=== PATIENT | female | born 1975 | race Caucasian/White ===

== ENCOUNTER → 2018-08-11 | Outpatient (CLI) | payer OTHER | END | disposition home or self-care (01) | LOC: RAH 10:46 | PROVIDERS: ATTEND Neurological Surgery | DX: M54.12 Radiculopathy, cervical region (principal); M48.02 Spinal stenosis, cervical region | CPT/HCPCS: 72141 ==

== ENCOUNTER → 2019-03-02 | Outpatient (CLI) | payer OTHER | END | disposition home or self-care (01) | LOC: RAH 12:51 | PROVIDERS: ATTEND Orthopaedic Surgery | DX: M19.012 Primary osteoarthritis, left shoulder (principal); M75.42 Impingement syndrome of left shoulder | CPT/HCPCS: 73221 ==

== ENCOUNTER → 2019-03-30 | Outpatient (CLI) | payer OTHER ==
[2019-03-30 07:34] LABS: BASOPHILS % (AUTO) 1.3 % (0.0-5.0); EOSINOPHILS % (AUTO) 3.3 % (0.0-8.0); HEMATOCRIT 39.5 % (36-48); LYMPHOCYTES % (AUTO) 42.6 % (21.0-51.0); MEAN CORPUSCULAR HEMOGLOBIN 31.3 pg (27.0-33.0); MEAN CORPUSCULAR HGB CONC 33.8 g/dL (32.0-36.0); MEAN CORPUSCULAR VOLUME 92.4 fL (79-99); MONOCYTES % (AUTO) 6.7 % (3.0-13.0); NEUTROPHILS % (AUTO) 46.1 % (40.0-77.0); PLATELET COUNT (AUTO) 165 K/uL (130-400); RED BLOOD CELL COUNT(AUTO) 4.28 MIL/uL (4.00-5.50); RED CELL DISTRIBUTION WIDTH 13.8 % (11.0-15.5); WHITE BLOOD COUNT (AUTO) 3.8 K/uL (4.8-10.8)
[2019-03-30 07:57] LABS: HEMOGLOBIN A1C 5.3 % (4.0-6.0)
[2019-03-30 08:09] LABS: ALBUMIN 4.2 g/dL (3.5-5.0); BILIRUBIN,TOTAL 0.4 mg/dL (0.2-1.0); CREATININE 0.6 mg/dL (0.5-1.5); POTASSIUM 4.4 mmol/L (3.5-5.1); T4 (THYROXINE) 7.2 ug/dL (4.7-13.3); THYROID STIMULATING HORMONE 1.26 uIU/mL (0.36-3.74); TOTAL PROTEIN, SERUM 7.3 g/dL (6.0-8.3)
== END | disposition home or self-care (01) ==
LOC: LAB 07:11
PROVIDERS: ATTEND Internal Medicine Cardiovascular Disease
DX: R00.2 Palpitations (principal); R55 Syncope and collapse
CPT/HCPCS: 36415; 80053; 80061; 83036; 84436; 84439; 84443; 84481; 85025

== ENCOUNTER → 2019-04-20 | Outpatient (CLI) | payer OTHER | END | disposition home or self-care (01) | LOC: SHCH 12:43 | PROVIDERS: ATTEND Internal Medicine Cardiovascular Disease | DX: R55 Syncope and collapse (principal); R00.2 Palpitations | CPT/HCPCS: 93306 ==

== ENCOUNTER 2019-06-09 06:58 | Day surgery (SDC) | payer OTHER ==
[2019-06-08 15:07] VITALS: BP 120/74
[2019-06-08 15:15] LABS: BASOPHILS % (AUTO) 0.9 % (0.0-5.0); EOSINOPHILS % (AUTO) 3.3 % (0.0-8.0); HEMATOCRIT 39.9 % (36-48); LYMPHOCYTES % (AUTO) 44.4 % (21.0-51.0); MEAN CORPUSCULAR HEMOGLOBIN 31.7 pg (27.0-33.0); MEAN CORPUSCULAR HGB CONC 34.2 g/dL (32.0-36.0); MEAN CORPUSCULAR VOLUME 92.7 fL (79-99); NEUTROPHILS % (AUTO) 44.4 % (40.0-77.0); NUCLEATED RED BLOOD CELLS 0.1 % (0.0-0.19); PLATELET COUNT (AUTO) 167 K/uL (130-400); RED BLOOD CELL COUNT(AUTO) 4.31 MIL/uL (4.00-5.50); RED CELL DISTRIBUTION WIDTH 13.2 % (11.0-15.5); WHITE BLOOD COUNT (AUTO) 5.6 K/uL (4.8-10.8)
[2019-06-08 15:30] LABS: CREATININE 0.7 mg/dL (0.5-1.5); POTASSIUM 3.6 mmol/L (3.5-5.1)
[~2019-06-09] VITALS: Ht 168.9 cm; Wt 70.8 kg
[2019-06-09] VITALS (13 sets, daily range): BP systolic 101–126; BP diastolic 60–84
[~2019-06-09 06:58] MED LIST: MELO-106 PO; MULT1CAP36 PO; inhaler IH
[2019-06-09] MEDS ORDERED: MIDAZOLAM HCL 1 MG/ML 2ML VIAL ONE ×2 (07:46→08:35)
[2019-06-09] MEDS ORDERED: ONDANSETRON HCL 4 MG/2 ML VIAL ONE (07:47)
[2019-06-09] MEDS ORDERED: LACTATED RINGERS 1000ML 1,000 ML IV ONE (08:01)
[2019-06-09] MEDS: CEFAZOLIN SODIUM 1 GM VIAL IVP ONE ×2 (08:29→09:00)
[2019-06-09] MEDS ORDERED: EPINEPHRINE 1 MG/ML 30ML VIAL IJ ONE (08:30)
[2019-06-09] MEDS ORDERED: LIDOCAINE PF 2% 5ML ABBOJECT ONE (08:32)
[2019-06-09] MEDS ORDERED: ROPIVACAINE 0.5% 5MG/ML 30ML IJ ONE (08:32)
[2019-06-09] MEDS ORDERED: PROPOFOL 10 MG/ML 20ML VIAL IV ONE (08:33)
[2019-06-09] MEDS ORDERED: ROCURONIUM 10MG/1ML SYR 10 MG/ML ML ONE ×2 (08:33→09:24)
[2019-06-09] MEDS ORDERED: FENTANYL CITRATE PF 50 MCG/1 ML 2ML VIAL ONE ×2 (08:35→11:54)
[2019-06-09] MEDS ORDERED: GLYCOPYRROLATE 1 MG/5 ML SYRINGE ONE (11:53)
[2019-06-09] MEDS ORDERED: NEOSTIGMINE 5MG/5ML SYR IV ONE (11:53)
[2019-06-09] MEDS ORDERED: HYDR-4457 PO (12:13)
[2019-06-09] MEDS ORDERED: CEPH500B PO (12:13)
[2019-06-09] MEDS ORDERED: SCOPOLAMINE HYDROBROMIDE 1 EACH ADH..PATCH TD ONE (12:14)
[2019-06-09] MEDS ORDERED: MEPERIDINE-PF 25 MG/ML SYG ONE (12:20)
--- NOTE | 2019-06-09 13:30 | NUR ---
RECEIVE PT RECEIVED FROM POWDER BLENDER VIA STRETCHER AWAKE, ORIENTED, SLEEPY. PT STABLE. NO COMPLAINTS MADE. SLING TO LEFT ARM IN PLACE, LEFT ARM SUPPORTED WITH PILLOW. OPSITE/GAUZE DRESSINGS TO LEFT SHOULDER DRY AND INTACT, NO OOZING NOTED. MINIMAL MOVEMENT NOTED TO LEFT ARM, CAPILLARY REFILLS BRISK, PULSE STRONG. CALL GAVIRIA WITHIN REACH, WILL CALL FOR TO GO IN TO ROOM.
--- NOTE | 2019-06-09 14:18 | NUR ---
DISCHARGE PT DISCHARGED VIA WHEELCHAIR WITH . PT STABLE. NO COMPLAINTS MADE, NOT IN ANY APPARENT DISTRESS. DRESSINGS TO LEFT SHOULDER DRY AND INTACT, NO OOZING OR BLEEDING NOTED. SLING LEFT ARM IN PLACE. DISCHARGE INSTRUCTIONS GIVEN TO AND PT, VERBALIZED UNDERSTANDING. ALSO VERBALIZED UNDERSTANDING THAT PT MAY KEEP SCOPOLAMINE PATCH UP TO 3 DAYS, WASH HANDS AND DO NOT TOUCH EYES WHEN HANDLING PATCH.
== END 2019-06-09 14:18 | disposition home or self-care (01) ==
LOC: DAH 06:58
PROVIDERS: ATTEND Orthopaedic Surgery
DX: S43.432A Superior glenoid labrum lesion of left shoulder, initial encounter (principal); M25.812 Other specified joint disorders, left shoulder; M19.012 Primary osteoarthritis, left shoulder; M25.512 Pain in left shoulder; J45.909 Unspecified asthma, uncomplicated; G89.29 Other chronic pain; X58.XXXA Exposure to other specified factors, initial encounter; Y93.89 Activity, other specified; Y92.89 Other specified places as the place of occurrence of the external cause; Y99.8 Other external cause status; Z79.01 Long term (current) use of anticoagulants; Z79.899 Other long term (current) drug therapy; Z98.890 Other specified postprocedural states; Z83.3 Family history of diabetes mellitus; Z82.49 Family history of ischemic heart disease and other diseases of the circulatory system
CPT/HCPCS: 29807; 29824; 29826; 36415; 64415; 80048; 85025; A4565; A4600; A4649 ×5; A4930; A6204; C1713; G0168; J0171; J0690; J2001; J2175; J2250 ×2; J2405; J2704; J2710; J2795; J3010 ×2; J3490; J7030; J7120

== ENCOUNTER → 2019-06-19 | Outpatient (CLI) | payer OTHER ==
[~2019-06-19] MED LIST changes: +CEPH500B PO; +HYDR-4457 PO; +IOHEXOL-350 75 ML VIAL IV ONE
== END | disposition home or self-care (01) ==
LOC: RAH 14:10
PROVIDERS: ATTEND Family Medicine
DX: I26.99 Other pulmonary embolism without acute cor pulmonale (principal)
CPT/HCPCS: 71275; Q9967

== ENCOUNTER → 2019-07-13 | Outpatient (CLI) | payer OTHER ==
[~2019-07-13] MED LIST changes: -IOHEXOL-350 75 ML VIAL IV ONE
== END | disposition home or self-care (01) ==
LOC: RAH 09:54
PROVIDERS: ATTEND Family Medicine
DX: I82.621 Acute embolism and thrombosis of deep veins of right upper extremity (principal); M79.601 Pain in right arm
CPT/HCPCS: 93931; 93971

== ENCOUNTER 2019-11-02 17:39 | Observation (INO) | payer OTHER ==
[~2019-11-02] VITALS: Ht 170.2 cm; Wt 68.0 kg
[2019-11-02] MEDS ORDERED: ONDANSETRON HCL 4 MG/2 ML VIAL ONE (18:47)
[2019-11-02] MEDS ORDERED: SODIUM CHLORIDE 0.9% 1000ML 1,000 ML IV ONE ×3 (18:47→20:06)
[2019-11-02 19:21] LABS: CREATININE 0.6 mg/dL (0.5-1.5); POTASSIUM 3.7 mmol/L (3.5-5.1)
[2019-11-02 19:22] LABS: INR 1.02 (0.85-1.15); PARTIAL THROMBOPLASTIN TIME 25.6 SEC (26.3-35.5); PROTHROMBIN TIME 10.7 SEC (9.6-11.6)
[2019-11-02 19:24] LABS: BASOPHILS % (AUTO) 0.3 % (0.0-5.0); EOSINOPHILS % (AUTO) 0.2 % (0.0-8.0); HEMATOCRIT 45.4 % (36-48); LYMPHOCYTES % (AUTO) 6.7 % (21.0-51.0); MEAN CORPUSCULAR HEMOGLOBIN 30.2 pg (27.0-33.0); MEAN CORPUSCULAR HGB CONC 33.7 g/dL (32.0-36.0); MEAN CORPUSCULAR VOLUME 89.7 fL (79-99); MONOCYTES % (AUTO) 2.5 % (3.0-13.0); NEUTROPHILS % (AUTO) 90.1 % (40.0-77.0); PLATELET COUNT (AUTO) 162 K/uL (130-400); RED BLOOD CELL COUNT(AUTO) 5.06 MIL/uL (4.00-5.50); RED CELL DISTRIBUTION WIDTH 13.1 % (11.0-15.5); WHITE BLOOD COUNT (AUTO) 8.9 K/uL (4.8-10.8)
[2019-11-02 19:25] LABS: ALBUMIN 4.3 g/dL (3.5-5.0); BILIRUBIN,TOTAL 0.5 mg/dL (0.2-1.0); TOTAL PROTEIN, SERUM 7.4 g/dL (6.0-8.3)
[2019-11-02] MEDS ORDERED: SODIUM CHLORIDE 0.9% 500ML 500 ML IV ONE ×2 (20:03→20:06)
[2019-11-02] MEDS ORDERED: KETOROLAC TROMETHAMINE 30MG/ML ONE (20:20)
[2019-11-02 21:07] LABS: BAND NEUTROPHILS % (MANUAL) 13 % (0-2); LYMPHOCYTES % (MANUAL) 6 % (22-44); MAN.DIFF COMMENT-IMPRESSION MANUAL DIFFERENTIAL; MONOCYTES % (MANUAL) 5 % (2-9); SEGMENTED NEUTROPHILS % 76 % (40-70)
[2019-11-02 21:08] LABS: PLATELET MORPHOLOGY COMMENT ADEQUATE
[2019-11-02 22:16] LABS: APPEARANCE,URINE Clear (CLEAR); BILIRUBIN,URINE Negative (NEGATIVE); COLOR,URINE Yellow (YELLOW); GLUCOSE, URINE (UA) Negative (NEGATIVE); KETONES,URINE 40 mg/dL (NEGATIVE); LEUKOCYTE ESTERASE ,URINE Negative (NEGATIVE); NITRATE,URINE Negative (NEGATIVE); OCCULT BLOOD,URINE Trace (NEGATIVE); PH,URINE 5.5 (5.0-8.0); PROTEIN,URINE Negative (NEGATIVE)
[2019-11-02 22:18] LABS: HCG,QUAL RESULT NEGATIVE (NEGATIVE)
[2019-11-02 22:32] LABS: AMORPHOUS SEDIMENT,UR Few /LPF (None Seen); BACTERIA,URINE Rare /HPF (None Seen); MUCUS,URINE Few LPF (None Seen); SQUAMOUS EPITHELIAL CELL,UR Few /HPF (0-2); WBC,URINE None Seen /HPF (0-1)
[2019-11-03] MEDS ORDERED: MECLIZINE HCL 25 MG TABLET PO PRN (00:30)
[2019-11-03] MEDS ORDERED: LACTULOSE 20 GM/30 ML UDCUP PO PRN (00:30)
[2019-11-03] MEDS ORDERED: ONDANSETRON HCL 4 MG/2 ML VIAL IV PRN (00:30)
[2019-11-03] MEDS ORDERED: ACETAMINOPHEN 325 MG TAB PO PRN ×2 (00:30)
[2019-11-03] MEDS ORDERED: SODIUM CHLORIDE 0.9% 1000ML 1,000 ML IV SCH (00:30)
[2019-11-03] MEDS ORDERED: KETOROLAC TROMETHAMINE 15MG/ML IV PRN (01:00)
[2019-11-03] MEDS ORDERED: SODIUM CHLORIDE 0.9% 1000ML 1,000 ML IV ONE (01:43)
[2019-11-03] MEDS ORDERED: KETOROLAC TROMETHAMINE 15MG/ML ONE (01:43)
[2019-11-03 03:00] VITALS: BP 97/54
[2019-11-03 07:48] VITALS: BP 98/54
[2019-11-03] MEDS ORDERED: FAMOTIDINE 20MG TAB 20 MG TAB PO SCH (09:00)
[2019-11-03] MEDS ORDERED: METOPROLOL TARTRATE 25 MG TAB PO SCH (09:00)
[2019-11-03] MEDS ORDERED: ENOXAPARIN SODIUM 30 MG/0.3 ML SQ SCH (09:00)
[2019-11-03 11:32] VITALS: BP 110/68
--- NOTE | 2019-11-03 14:28 | NUR ---
INSTRUCTIONS DISCHARGE INSTRUCTIONS GIVEN TO PATIENT USING TEACH BACK. IV HAS BEEN REMOVED. NO BLEEDING NOTED, SITE COVERED WITH GAUZE AND SECURED WITH A BAND-AID. NO NEW PRESCRIPTIONS. F/U APPOINTMENT TO BE MADE BY PATIENT NEEDED. ALL PRINTED INFORMATION AND MD INSTRUCTIONS GIVEN TO PATIENT. NO QUESTIONS OR CONCERNS VOICED. PENDING RIDE HOME.
== END 2019-11-03 15:00 | disposition home or self-care (01) ==
LOC: EDH 17:39 → EDHIP 11-03 00:25 → 3CH 11-03 01:45
PROVIDERS: ADMIT Internal Medicine; ATTEND Internal Medicine
DX: E86.0 Dehydration (principal); R11.2 Nausea with vomiting, unspecified; R10.30 Lower abdominal pain, unspecified; R42 Dizziness and giddiness; I95.9 Hypotension, unspecified; R00.0 Tachycardia, unspecified; K52.9 Noninfective gastroenteritis and colitis, unspecified; I82.621 Acute embolism and thrombosis of deep veins of right upper extremity; Z86.718 Personal history of other venous thrombosis and embolism; Z87.891 Personal history of nicotine dependence; Z86.72 Personal history of thrombophlebitis; Z79.01 Long term (current) use of anticoagulants; Z79.899 Other long term (current) drug therapy
CPT/HCPCS: 36415; 71045; 80053; 81001; 81025; 84484; 85025; 85610; 85730; 87804 ×2; 93005; 96372; 99284; G0378 ×15; J1650; J1885 ×2; J2405; J7030 ×4; J7040 ×2

== ENCOUNTER → 2019-11-24 | Outpatient (CLI) | payer OTHER ==
[~2019-11-24] MED LIST changes: -CEPH500B PO; -HYDR-4457 PO; -MELO-106 PO; -inhaler IH
== END | disposition home or self-care (01) ==
LOC: RAH 12:54
PROVIDERS: ATTEND Family Medicine
DX: I82.611 Acute embolism and thrombosis of superficial veins of right upper extremity (principal)
CPT/HCPCS: 93971

== ENCOUNTER → 2019-12-22 | Outpatient (CLI) | payer OTHER ==
[2019-12-22 11:47] LABS: BASOPHILS % (AUTO) 0.8 % (0.0-5.0); HEMATOCRIT 40.8 % (36-48); LYMPHOCYTES % (AUTO) 42.9 % (21.0-51.0); MEAN CORPUSCULAR HEMOGLOBIN 30.4 pg (27.0-33.0); MEAN CORPUSCULAR HGB CONC 33.3 g/dL (32.0-36.0); MEAN CORPUSCULAR VOLUME 91.3 fL (79-99); MONOCYTES % (AUTO) 5.6 % (3.0-13.0); NEUTROPHILS % (AUTO) 49.5 % (40.0-77.0); PLATELET COUNT (AUTO) 164 K/uL (130-400); RED BLOOD CELL COUNT(AUTO) 4.47 MIL/uL (4.00-5.50); RED CELL DISTRIBUTION WIDTH 13.5 % (11.0-15.5); WHITE BLOOD COUNT (AUTO) 4.8 K/uL (4.8-10.8)
[2019-12-22 12:13] LABS: ALBUMIN 4.6 g/dL (3.5-5.0); BILIRUBIN,TOTAL 0.4 mg/dL (0.2-1.0); CREATININE 0.6 mg/dL (0.5-1.5); POTASSIUM 4.1 mmol/L (3.5-5.1); TOTAL PROTEIN, SERUM 7.7 g/dL (6.0-8.3)
== END | disposition home or self-care (01) ==
LOC: LAB 11:23
PROVIDERS: ATTEND Family Medicine
DX: T78.00XA Anaphylactic reaction due to unspecified food, initial encounter (principal); I82.622 Acute embolism and thrombosis of deep veins of left upper extremity; I49.8 Other specified cardiac arrhythmias
CPT/HCPCS: 36415; 80053; 82085; 82550; 83615; 85025

== ENCOUNTER → 2020-03-18 | Outpatient (CLI) | payer OTHER | END | disposition home or self-care (01) | LOC: RAH 10:54 | PROVIDERS: ATTEND Family Medicine | DX: M79.604 Pain in right leg (principal) | CPT/HCPCS: 93971 ==

== ENCOUNTER 2020-10-28 16:03 | Emergency (ER) | payer OTHER ==
[2020-10-28] MEDS ORDERED: DIPHENHYDRAMINE HCL 25 MG CAPSULE ONE (17:28)
== END 2020-10-28 18:08 | disposition home or self-care (01) ==
LOC: EDH 16:03
DX: L50.0 Allergic urticaria (principal); Z91.018 Allergy to other foods; Z98.51 Tubal ligation status; Z79.899 Other long term (current) drug therapy
CPT/HCPCS: 99282; Q0163

== ENCOUNTER → 2020-11-05 | Outpatient (CLI) | payer OTHER | END | disposition home or self-care (01) | LOC: RAH 09:48 | PROVIDERS: ATTEND Family Medicine | DX: I82.621 Acute embolism and thrombosis of deep veins of right upper extremity (principal) | CPT/HCPCS: 93971 ==

== ENCOUNTER → 2021-02-19 | Outpatient (CLI) | payer OTHER ==
[2021-02-19 06:42] LABS: BASOPHILS % (AUTO) 0.9 % (0.0-5.0); EOSINOPHILS % (AUTO) 2.6 % (0.0-8.0); HEMATOCRIT 41.2 % (36-48); LYMPHOCYTES % (AUTO) 48.9 % (21.0-51.0); MEAN CORPUSCULAR HEMOGLOBIN 29.7 pg (27.0-33.0); MEAN CORPUSCULAR HGB CONC 32.8 g/dL (32.0-36.0); MEAN CORPUSCULAR VOLUME 90.7 fL (79-99); MONOCYTES % (AUTO) 8.2 % (3.0-13.0); NEUTROPHILS % (AUTO) 39.2 % (40.0-77.0); PLATELET COUNT (AUTO) 208 K/uL (130-400); RED BLOOD CELL COUNT(AUTO) 4.54 MIL/uL (4.00-5.50); RED CELL DISTRIBUTION WIDTH 13.2 % (11.0-15.5); WHITE BLOOD COUNT (AUTO) 5.4 K/uL (4.8-10.8)
[2021-02-19 06:54] LABS: APPEARANCE,URINE CLEAR (CLEAR); BILIRUBIN,URINE NEGATIVE (NEGATIVE); COLOR,URINE YELLOW (YELLOW); GLUCOSE, URINE (UA) NEGATIVE (NEGATIVE); KETONES,URINE NEGATIVE (NEGATIVE); LEUKOCYTE ESTERASE ,URINE NEGATIVE (NEGATIVE); NITRATE,URINE NEGATIVE (NEGATIVE); OCCULT BLOOD,URINE NEGATIVE (NEGATIVE); PROTEIN,URINE NEGATIVE (NEGATIVE); UROBILINOGEN,URINE 0.2 mg/dL (0.2-1.0)
[2021-02-19 07:28] LABS: ALBUMIN 4.1 g/dL (3.5-5.0); BILIRUBIN,TOTAL 0.3 mg/dL (0.2-1.0); CREATININE 0.7 mg/dL (0.5-1.5); MAGNESIUM 2.1 mg/dL (1.80-2.40); POTASSIUM 3.8 mmol/L (3.5-5.1); THYROID STIMULATING HORMONE 1.5 uIU/mL (0.36-3.74); TOTAL PROTEIN, SERUM 7.2 g/dL (6.0-8.3)
== END | disposition home or self-care (01) ==
LOC: LAB 06:11
PROVIDERS: ATTEND Family Medicine
DX: I49.8 Other specified cardiac arrhythmias (principal); I95.1 Orthostatic hypotension; G90.9 Disorder of the autonomic nervous system, unspecified; R42 Dizziness and giddiness; R53.82 Chronic fatigue, unspecified
CPT/HCPCS: 36415; 80053; 80061; 81003; 82306; 82607; 83036; 83735; 84443; 85025

== ENCOUNTER → 2021-03-21 | Outpatient (CLI) | payer OTHER ==
[2021-03-21 09:02] LABS: POTASSIUM 3.8 mmol/L (3.5-5.1)
== END | disposition home or self-care (01) ==
LOC: LAB 07:13
PROVIDERS: ATTEND Nurse Practitioner Family
DX: D51.8 Other vitamin B12 deficiency anemias (principal)
CPT/HCPCS: 36415; 82607; 84132

== ENCOUNTER → 2021-04-10 | Outpatient (CLI) | payer OTHER | END | disposition home or self-care (01) | LOC: RAH 07:08 | PROVIDERS: ATTEND Internal Medicine Gastroenterology | DX: R10.9 Unspecified abdominal pain (principal) | CPT/HCPCS: 76700 ==

== ENCOUNTER 2021-06-18 20:35 | Emergency (ER) | payer OTHER ==
[2021-06-18 20:42] VITALS: BP 150/90
[2021-06-18 20:52] LABS: BASOPHILS % (AUTO) 0.9 % (0.0-5.0); EOSINOPHILS % (AUTO) 2.6 % (0.0-8.0); HEMATOCRIT 39.6 % (36-48); LYMPHOCYTES % (AUTO) 52.4 % (21.0-51.0); MEAN CORPUSCULAR HEMOGLOBIN 30.7 pg (27.0-33.0); MEAN CORPUSCULAR HGB CONC 33.8 g/dL (32.0-36.0); MEAN CORPUSCULAR VOLUME 90.8 fL (79-99); MONOCYTES % (AUTO) 6.7 % (3.0-13.0); NEUTROPHILS % (AUTO) 37.2 % (40.0-77.0); NUCLEATED RED BLOOD CELLS 0.2 % (0.0-0.19); PLATELET COUNT (AUTO) 239 K/uL (130-400); RED BLOOD CELL COUNT(AUTO) 4.36 MIL/uL (4.00-5.50); RED CELL DISTRIBUTION WIDTH 13.4 % (11.0-15.5); WHITE BLOOD COUNT (AUTO) 10.3 K/uL (4.8-10.8)
[2021-06-18 20:58] LABS: BILIRUBIN,URINE Negative (NEGATIVE); COLOR,URINE Yellow (YELLOW); GLUCOSE, URINE (UA) Negative (NEGATIVE); KETONES,URINE Negative (NEGATIVE); LEUKOCYTE ESTERASE ,URINE Trace (NEGATIVE); NITRATE,URINE Negative (NEGATIVE); OCCULT BLOOD,URINE Negative (NEGATIVE); PROTEIN,URINE Negative (NEGATIVE)
[2021-06-18 21:00] LABS: APPEARANCE,URINE CLOUDY (CLEAR)
[2021-06-18] MEDS ORDERED: DiphenhydrAMINE HCL 50 MG/ML VIAL IV ONE (21:00)
[2021-06-18] MEDS ORDERED: DiphenhydrAMINE HCL 50 MG/ML VIAL ONE (21:01)
[2021-06-18 21:03] LABS: HCG,QUAL RESULT NEGATIVE (NEGATIVE)
[2021-06-18 21:07] LABS: AMPHET/METH SCREEN,URINE NEGATIVE (NEGATIVE); BARBITURATE SCREEN, URINE NEGATIVE (NEGATIVE); BENZODIAZEPINES SCREEN,URINE NEGATIVE (NEGATIVE); CANNABINOID SCREEN,URINE POSITIVE (NEGATIVE); COCAINE SCREEN,URINE NEGATIVE (NEGATIVE); OPIATE SCREEN,URINE NEGATIVE (NEGATIVE); PHENCYCLIDINE SCREEN,URINE NEGATIVE (NEGATIVE)
[2021-06-18 21:07] LABS: CREATININE 0.7 mg/dL (0.5-1.5); POTASSIUM 3.4 mmol/L (3.5-5.1)
[2021-06-18 21:09] LABS: PROTHROMBIN TIME 10.9 SEC (9.6-11.6)
[2021-06-18 21:10] LABS: PARTIAL THROMBOPLASTIN TIME 24.5 SEC (26.3-35.5)
[2021-06-18 21:11] LABS: RBC,URINE 0-1 /HPF (0-1)
[2021-06-18 21:12] LABS: BACTERIA,URINE Few /HPF (None Seen); SQUAMOUS EPITHELIAL CELL,UR Rare /HPF (0-2)
[2021-06-18 21:13] LABS: AMORPHOUS SEDIMENT,UR Moderate /LPF (None Seen)
[2021-06-18 21:15] VITALS: BP 132/83
[2021-06-18 21:20] LABS: ALBUMIN 4.4 g/dL (3.5-5.0); BILIRUBIN,TOTAL 0.2 mg/dL (0.2-1.0); TOTAL PROTEIN, SERUM 7.4 g/dL (6.0-8.3)
[2021-06-18] MEDS ORDERED: LORAZEPAM 2 MG/ML 1 ML VIAL IVP ONE (21:30)
[2021-06-18] MEDS ORDERED: KETOROLAC 30MG VIAL (30MG/ML) IV ONE (21:30)
[2021-06-18] MEDS ORDERED: HYDR50CA PO (23:31)
[2021-06-18 23:52] VITALS: BP 119/68
[2021-06-20] MEDS ORDERED: METO25TA6 PO (09:09)
== END 2021-06-19 00:50 | disposition home or self-care (01) ==
LOC: EDH 20:35
DX: F41.0 Panic disorder [episodic paroxysmal anxiety] (principal); F43.0 Acute stress reaction
CPT/HCPCS: 36415; 70450; 71275; 80053; 80305; 81001; 81025; 82948; 84484; 85025; 85610; 85730; 96374; 96375; J1200; J1885; J2060

== ENCOUNTER 2021-06-19 17:31 | Inpatient (IN) | payer OTHER ==
[~2021-06-19] VITALS: Ht 170.2 cm; Wt 71.8 kg
[~2021-06-19 17:31] MED LIST changes: +HYDR50CA PO
[2021-06-19 18:04] LABS: BASOPHILS % (AUTO) 0.6 % (0.0-5.0); EOSINOPHILS % (AUTO) 0.4 % (0.0-8.0); HEMATOCRIT 40.3 % (36-48); LYMPHOCYTES % (AUTO) 28.5 % (21.0-51.0); MEAN CORPUSCULAR HEMOGLOBIN 30.5 pg (27.0-33.0); MEAN CORPUSCULAR VOLUME 89.8 fL (79-99); MONOCYTES % (AUTO) 5.5 % (3.0-13.0); NEUTROPHILS % (AUTO) 64.7 % (40.0-77.0); PLATELET COUNT (AUTO) 209 K/uL (130-400); RED BLOOD CELL COUNT(AUTO) 4.49 MIL/uL (4.00-5.50); RED CELL DISTRIBUTION WIDTH 13.4 % (11.0-15.5); WHITE BLOOD COUNT (AUTO) 6.7 K/uL (4.8-10.8)
[2021-06-19 18:22] LABS: INR 1.05 (0.85-1.15); PROTHROMBIN TIME 11.4 SEC (9.6-11.6)
[2021-06-19] MEDS ORDERED: METOPROLOL TARTRATE 1 MG/ML 5ML VIAL IV ONE (18:30)
[2021-06-19] MEDS ORDERED: ONDANSETRON 4MG INJ IVP ONE (18:30)
[2021-06-19] MEDS ORDERED: MORPHINE 2 MG SYG IM ONE (18:30)
[2021-06-19 18:37] VITALS: BP 122/76
[2021-06-19] MEDS ORDERED: ONDANSETRON 4MG INJ ONE (18:41)
[2021-06-19] MEDS ORDERED: MORPHINE 2 MG SYG ONE (18:41)
[2021-06-19 18:47] LABS: CREATININE 0.6 mg/dL (0.5-1.5); POTASSIUM 3.8 mmol/L (3.5-5.1)
[2021-06-19 18:52] LABS: ALBUMIN 4.5 g/dL (3.5-5.0); BILIRUBIN,TOTAL 0.4 mg/dL (0.2-1.0); TOTAL PROTEIN, SERUM 7.7 g/dL (6.0-8.3)
[2021-06-19 19:11] LABS: APPEARANCE,URINE Clear (CLEAR); BILIRUBIN,URINE Negative (NEGATIVE); COLOR,URINE Yellow (YELLOW); GLUCOSE, URINE (UA) Negative (NEGATIVE); KETONES,URINE 15 mg/dL (NEGATIVE); LEUKOCYTE ESTERASE ,URINE Trace (NEGATIVE); NITRATE,URINE Negative (NEGATIVE); OCCULT BLOOD,URINE Negative (NEGATIVE); PH,URINE 5.5 (5.0-8.0); PROTEIN,URINE Negative (NEGATIVE); UROBILINOGEN,URINE 0.2 mg/dL (0.2-1.0)
[2021-06-19 19:14] LABS: HCG,QUAL RESULT NEGATIVE (NEGATIVE)
[2021-06-19 19:30] LABS: BACTERIA,URINE Few /HPF (None Seen); SQUAMOUS EPITHELIAL CELL,UR Moderate /HPF (0-2)
[2021-06-19 19:31] LABS: MUCUS,URINE Few LPF (None Seen)
[2021-06-19 20:03] VITALS: BP 128/83
[2021-06-19] MEDS ORDERED: DiphenhydrAMINE HCL 50 MG/ML VIAL ONE (20:12)
[2021-06-19] MEDS ORDERED: DiphenhydrAMINE HCL 50 MG/ML VIAL IV ONE (20:30)
[2021-06-19] MEDS ORDERED: NITROGLYCERIN 0.4 MG SL TAB SL PRN (21:30)
[2021-06-19] MEDS ORDERED: CYCLOBENZAPRINE HCL 10 MG TABLET PO ONE (21:30)
[2021-06-19] MEDS ORDERED: ONDANSETRON 4MG INJ IV PRN (21:30)
[2021-06-19] MEDS ORDERED: HYDROCODONE/ACETAMINOPHEN 5/325 MG TAB PO ONE (21:30)
[2021-06-19] MEDS ORDERED: ASPIRIN 325MG TAB PO ONE (21:30)
[2021-06-19 21:58] LABS: THYROID STIMULATING HORMONE 1.24 uIU/mL (0.36-3.74)
[2021-06-19 22:01] LABS: AMPHET/METH SCREEN,URINE NEGATIVE (NEGATIVE); BARBITURATE SCREEN, URINE NEGATIVE (NEGATIVE); BENZODIAZEPINES SCREEN,URINE NEGATIVE (NEGATIVE); CANNABINOID SCREEN,URINE POSITIVE (NEGATIVE); COCAINE SCREEN,URINE NEGATIVE (NEGATIVE); OPIATE SCREEN,URINE NEGATIVE (NEGATIVE); PHENCYCLIDINE SCREEN,URINE NEGATIVE (NEGATIVE)
[2021-06-19 22:28] VITALS: BP 120/76
[2021-06-19] MEDS ORDERED: ASPIRIN 325MG TAB ONE (22:58)
[2021-06-19] MEDS ORDERED: CYCLOBENZAPRINE HCL 10 MG TABLET ONE (22:58)
[2021-06-19] MEDS ORDERED: HYDROCODONE/ACETAMINOPHEN 5/325 MG TAB ONE (22:58)
[2021-06-19 23:20] VITALS: BP 157/94
[2021-06-19] MEDS ORDERED: HYDROXYZINE 25 MG TABLET PO STA (23:35)
[2021-06-20 00:26] LABS: CREATINE KINASE, TOTAL 96 U/L (21-232); MYOGLOBIN 32 ng/mL (10-92); TROPONIN I < 0.04 ng/mL (0.00-0.06)
[2021-06-20 08:00] VITALS: BP 119/74
[2021-06-20 08:50] LABS: BASOPHILS % (AUTO) 0.8 % (0.0-5.0); EOSINOPHILS % (AUTO) 2.3 % (0.0-8.0); HEMATOCRIT 38.2 % (36-48); LYMPHOCYTES % (AUTO) 36.9 % (21.0-51.0); MEAN CORPUSCULAR HEMOGLOBIN 30.5 pg (27.0-33.0); MEAN CORPUSCULAR HGB CONC 33.2 g/dL (32.0-36.0); MEAN CORPUSCULAR VOLUME 91.6 fL (79-99); MONOCYTES % (AUTO) 7.6 % (3.0-13.0); NEUTROPHILS % (AUTO) 52.4 % (40.0-77.0); PLATELET COUNT (AUTO) 193 K/uL (130-400); RED BLOOD CELL COUNT(AUTO) 4.17 MIL/uL (4.00-5.50); RED CELL DISTRIBUTION WIDTH 13.4 % (11.0-15.5); WHITE BLOOD COUNT (AUTO) 4.7 K/uL (4.8-10.8)
[2021-06-20] MEDS: FAMOTIDINE 20MG TAB PO SCH ×2 (09:06→20:33)
[2021-06-20] MEDS: ASPIRIN 81 MG EC TAB PO SCH (09:06)
[2021-06-20] MEDS: ENOXAPARIN SODIUM 40 MG/0.4 ML SYRINGE SQ SCH (09:07)
[2021-06-20] MEDS ORDERED: METO25TA6 PO (09:09)
[2021-06-20 09:12] LABS: CARBON DIOXIDE 29 mmol/L (21-32); CHLORIDE 102 mmol/L (101-111); CREATINE KINASE, TOTAL 83 U/L (21-232); CREATININE 0.7 mg/dL (0.5-1.5); GLOMERULAR FILTR. RATE CALC 95 mL/min (>60); GLUCOSE,RANDOM 122 mg/dL (70-105); MYOGLOBIN 49 ng/mL (10-92); PHOSPHORUS 3.8 mg/dL (2.5-4.9); POTASSIUM 3.7 mmol/L (3.5-5.1); SODIUM SERUM 140 mmol/L (136-145); TROPONIN I < 0.04 ng/mL (0.00-0.06); UREA NITROGEN, BLOOD 11 mg/dL (7-18)
[2021-06-20] MEDS: ACETAMINOPHEN 325 MG TAB PO PRN ×2 (10:17→16:54)
[2021-06-20 12:00] VITALS: BP 121/86
[2021-06-20 16:00] VITALS: BP 161/95
[2021-06-20] MEDS ORDERED: METOPROLOL TARTRATE 25 MG TAB PO ONE (16:00)
[2021-06-20 17:04] VITALS: BP 129/85
[2021-06-20 19:53] VITALS: BP 123/80
[2021-06-20] MEDS: METOPROLOL TARTRATE 25 MG TAB PO SCH (20:58)
[2021-06-20 23:37] VITALS: BP 108/70
[2021-06-21 04:00] VITALS: BP 95/60
[2021-06-21] MEDS: METOPROLOL TARTRATE 25 MG TAB PO SCH ×3 (05:01→20:14)
[2021-06-21 06:59] LABS: BASOPHILS % (AUTO) 0.8 % (0.0-5.0); EOSINOPHILS % (AUTO) 3.9 % (0.0-8.0); HEMATOCRIT 38.7 % (36-48); LYMPHOCYTES % (AUTO) 41.9 % (21.0-51.0); MEAN CORPUSCULAR HEMOGLOBIN 30.5 pg (27.0-33.0); MEAN CORPUSCULAR HGB CONC 33.9 g/dL (32.0-36.0); MONOCYTES % (AUTO) 6.4 % (3.0-13.0); NEUTROPHILS % (AUTO) 46.8 % (40.0-77.0); PLATELET COUNT (AUTO) 227 K/uL (130-400); RED CELL DISTRIBUTION WIDTH 13.2 % (11.0-15.5); WHITE BLOOD COUNT (AUTO) 5.3 K/uL (4.8-10.8)
[2021-06-21 07:13] LABS: CREATININE 0.7 mg/dL (0.5-1.5); MAGNESIUM 2.1 mg/dL (1.80-2.40); POTASSIUM 3.9 mmol/L (3.5-5.1)
[2021-06-21 08:00] VITALS: BP 101/54
[2021-06-21] MEDS: ENOXAPARIN SODIUM 40 MG/0.4 ML SYRINGE SQ SCH (08:23)
[2021-06-21] MEDS: ASPIRIN 81 MG EC TAB PO SCH (08:23)
[2021-06-21] MEDS ORDERED: DiphenhydrAMINE HCL 50 MG/ML VIAL IV SCH (08:30)
[2021-06-21] MEDS ORDERED: TEMAZEPAM 7.5 MG CAPSULE PO PRN (09:30)
[2021-06-21 12:00] VITALS: BP 98/64
[2021-06-21 16:00] VITALS: BP 112/79
[2021-06-21 17:14] VITALS: BP 114/68
[2021-06-21 20:12] VITALS: BP 105/69
[2021-06-22 00:12] VITALS: BP 101/63
[2021-06-22 04:12] VITALS: BP 93/59
[2021-06-22 06:50] LABS: BASOPHILS % (AUTO) 0.9 % (0.0-5.0); EOSINOPHILS % (AUTO) 4.3 % (0.0-8.0); LYMPHOCYTES % (AUTO) 48.8 % (21.0-51.0); MEAN CORPUSCULAR HEMOGLOBIN 29.9 pg (27.0-33.0); MEAN CORPUSCULAR HGB CONC 32.6 g/dL (32.0-36.0); MEAN CORPUSCULAR VOLUME 91.6 fL (79-99); MONOCYTES % (AUTO) 7.7 % (3.0-13.0); NEUTROPHILS % (AUTO) 38.1 % (40.0-77.0); PLATELET COUNT (AUTO) 188 K/uL (130-400); RED BLOOD CELL COUNT(AUTO) 4.15 MIL/uL (4.00-5.50); RED CELL DISTRIBUTION WIDTH 13.2 % (11.0-15.5); WHITE BLOOD COUNT (AUTO) 4.7 K/uL (4.8-10.8)
[2021-06-22 06:59] LABS: CREATININE 0.7 mg/dL (0.5-1.5); POTASSIUM 4.1 mmol/L (3.5-5.1)
[2021-06-22 08:00] VITALS: BP 95/61
[2021-06-22] MEDS: METOPROLOL TARTRATE 25 MG TAB PO SCH (08:43)
[2021-06-22] MEDS: ENOXAPARIN SODIUM 40 MG/0.4 ML SYRINGE SQ SCH (08:44)
[2021-06-22] MEDS: ASPIRIN 81 MG EC TAB PO SCH (08:44)
[2021-06-22 11:54] VITALS: BP_SYST 108; BP_SYST 117; BP_DIAS 72; BP_DIAS 87
[2021-06-22] MEDS ORDERED: METO37.5 PO (12:47)
[2021-06-22] MEDS ORDERED: ASPI-1005 PO (12:47)
== END 2021-06-22 14:07 | disposition home or self-care (01) | DRG 313 ==
LOC: EDH 17:31 → OBSVTOIN 21:13 → EDHIP 21:13 → 4CH 23:20
PROVIDERS: ADMIT Internal Medicine; ATTEND Internal Medicine
DX: R07.9 Chest pain, unspecified (principal); E78.5 Hyperlipidemia, unspecified; Z79.899 Other long term (current) drug therapy; Z86.718 Personal history of other venous thrombosis and embolism; G47.00 Insomnia, unspecified; Z87.891 Personal history of nicotine dependence; Z98.82 Breast implant status; I49.8 Other specified cardiac arrhythmias; I10 Essential (primary) hypertension; F41.9 Anxiety disorder, unspecified; Z88.8 Allergy status to other drugs, medicaments and biological substances
CPT/HCPCS: 36415; 71045; 80048; 80053; 80061; 80305; 81025; 82550; 83735; 83874; 84100; 84443; 84484; 85025; 85378; 85610; 93005; 93970; G0378; J1200; J1650; J2405; J3490

== ENCOUNTER 2021-07-30 08:45 | Emergency (ER) | payer OTHER ==
[~2021-07-30] VITALS: Ht 170.2 cm; Wt 72.6 kg
[~2021-07-30 08:45] MED LIST changes: +ASPI-1005 PO; +METO37.5 PO
[2021-07-30 09:09] LABS: BASOPHILS % (AUTO) 0.8 % (0.0-5.0); EOSINOPHILS % (AUTO) 2.3 % (0.0-8.0); HEMATOCRIT 37.8 % (36-48); LYMPHOCYTES % (AUTO) 47.7 % (21.0-51.0); MEAN CORPUSCULAR HEMOGLOBIN 30.2 pg (27.0-33.0); MEAN CORPUSCULAR HGB CONC 33.6 g/dL (32.0-36.0); MONOCYTES % (AUTO) 6.5 % (3.0-13.0); NEUTROPHILS % (AUTO) 42.5 % (40.0-77.0); PLATELET COUNT (AUTO) 201 K/uL (130-400); RED CELL DISTRIBUTION WIDTH 13.2 % (11.0-15.5); WHITE BLOOD COUNT (AUTO) 6.2 K/uL (4.8-10.8)
[2021-07-30 09:22] VITALS: BP 117/68
[2021-07-30 09:29] LABS: ALBUMIN 3.9 g/dL (3.5-5.0); BILIRUBIN,TOTAL 0.3 mg/dL (0.2-1.0); CREATININE 0.8 mg/dL (0.5-1.5); POTASSIUM 3.3 mmol/L (3.5-5.1)
[2021-07-30 09:40] LABS: B-TYPE NATRIURETIC PEPTIDE 43 pg/mL (0-100)
[2021-07-30] MEDS ORDERED: IVAB5TAB PO (09:50)
[2021-07-30 10:07] VITALS: BP 111/65
[2021-07-30] MEDS ORDERED: 0.9%NACL 1000ML 1,000 ML IV SCH ×2 (10:15→10:30)
[2021-07-30 11:13] VITALS: BP 93/51
[2021-07-30] MEDS ORDERED: MAGNESIUM 2GM PREMIX 50ML 50 ML IV SCH (11:30)
[2021-07-30 12:22] VITALS: BP 95/54
[2021-07-30] MEDS ORDERED: POTASSIUM BICARB/CIT AC 25 MEQ TABLET.EFF PO ONE (12:30)
[2021-07-30] MEDS ORDERED: ONDANSETRON 4MG INJ ONE (12:47)
[2021-07-30] MEDS ORDERED: ONDANSETRON 4MG INJ IVP ONE (13:00)
== END 2021-07-30 13:04 | disposition home or self-care (01) ==
LOC: EDH 08:45
DX: I95.9 Hypotension, unspecified (principal); E86.1 Hypovolemia; E86.0 Dehydration; E78.00 Pure hypercholesterolemia, unspecified; I10 Essential (primary) hypertension; Z79.82 Long term (current) use of aspirin; Z79.899 Other long term (current) drug therapy
CPT/HCPCS: 36415; 71045; 80053; 82550; 83735; 83874; 83880; 84484; 85025; 93005; 96361; 96374; 99285; J2405; J7030